=== PATIENT | female | born 1965 | race Caucasian/White ===

== ENCOUNTER 2017-10-14 22:29 | Inpatient (IN) | payer MEDICARE ==
[~2017-10-14] VITALS: Ht 172.7 cm; Wt 61.4 kg
[2017-10-14 23:48] LABS: BASOPHILS 0.1 % (0-2); EOSINOPHILS 0.1 % (0-7); HEMATOCRIT 43.2 % (36.0-48.0); HEMOGLOBIN 15.2 g/dL (12-16); IMMATURE GRANULOCYTES 0.2 % (0-5); LYMPHOCYTES 12.2 % (15-50); MCHC 35.2 g/dL (31.0-37.0); MCV 88.2 fL (80.0-100.0); MEAN PLATELET VOLUME 9.1 fL (7.4-10.4); MONOCYTES 7.6 % (2-11); NEUTROPHILS 79.8 % (40-80); PLATELET COUNT 409 10x3/uL (130-400); RDW 12.9 % (11.5-14.5); WBC 13.6 10x3/uL (4.8-10.8)
[2017-10-14 23:52] LABS: UDS - AMPHET POSITIVE QUAL (NEGATIVE); UDS - BARB NEGATIVE QUAL (NEGATIVE); UDS - BENZO NEGATIVE QUAL (NEGATIVE); UDS - COCAINE NEGATIVE QUAL (NEGATIVE); UDS - OPIATE NEGATIVE QUAL (NEGATIVE); UDS - PCP NEGATIVE QUAL (NEGATIVE); UDS - THC NEGATIVE QUAL (NEGATIVE)
[2017-10-14 23:56] LABS: AMORPHOUS SEDIMENT >1+ /lpf (NONE SEEN); APPEARANCE HAZY (CLEAR); BACTERIA FEW /hpf (NONE SEEN); BILIRUBIN NEGATIVE (NEGATIVE); COLOR YELLOW (YELLOW); EPITHELIAL CELLS NSEEN /hpf (0-5); GLUCOSE NEGATIVE (NEGATIVE); GRANULAR CAST 0-5 /lpf (NONE SEEN); HYALINE CAST 0-5 /lpf (NONE SEEN); KETONE MODERATE mg/dL (NEGATIVE); NITRITE NEGATIVE (NEGATIVE); PROTEIN 1+ mg/dL (NEGATIVE); UROBILINOGEN NORMAL (NORMAL); WHITE CELLS - URINE 0-5 /hpf (0-5)
[2017-10-15 00:13] LABS: ALBUMIN 4.3 g/dL (3.4-5.0); ALKALINE PHOSPHATASE 89 U/L (46-116); ALT (SGPT) 47 U/L (10-68); CALC OSMOLALITY 288 mosm/kg (275-300); CALCIUM 10.2 mg/dL (8.5-10.1); CARBON DIOXIDE 20.9 mmol/L (21.0-32.0); CHLORIDE - SERUM 102 mmol/L (98-107); CREATININE - SERUM 1.7 mg/dL (0.6-1.3); GLUCOSE 95 mg/dL (74-106); POTASSIUM - SERUM 3.7 mmol/L (3.5-5.1); PROTEIN - SERUM 8.1 g/dL (6.4-8.2); SODIUM 139 mmol/L (136-145); UREA NITROGEN 44 mg/dL (7-18); eGFR NON AFRICAN AMERICAN 33 mL/min (90-120)
[2017-10-15 00:32] LABS: CREATINE KINASE 1400 UL (21-215)
[2017-10-15 00:34] LABS: CKMB 33.8 U/L (0.0-3.6)
[2017-10-15] MEDS ORDERED: FLUTICASONE PRO16 GM NASAL (02:07)
[2017-10-15] MEDS ORDERED: ZYRTEC10 MG PO (02:09)
[2017-10-15] MEDS ORDERED: FUROSEMIDE20 MG PO (02:11)
[2017-10-15] MEDS ORDERED: VALIUM10 MG PO (02:12)
[2017-10-15] MEDS ORDERED: NEURONTIN 300300 MG PO (02:12)
[2017-10-15] MEDS ORDERED: ROXICODONE30 MG PO (02:13)
[2017-10-15 03:01] VITALS: BP 115/74; Ht 172.7 cm; Wt 61.4 kg
[2017-10-15 04:00] VITALS: BP 115/74
[2017-10-15 06:09] LABS: BASOPHILS 0.1 % (0-2); EOSINOPHILS 1.5 % (0-7); HEMATOCRIT 38.4 % (36.0-48.0); HEMOGLOBIN 12.8 g/dL (12-16); IMMATURE GRANULOCYTES 0.2 % (0-5); LYMPHOCYTES 15.5 % (15-50); MCHC 33.3 g/dL (31.0-37.0); MCV 89.9 fL (80.0-100.0); MEAN PLATELET VOLUME 9.2 fL (7.4-10.4); MONOCYTES 9.4 % (2-11); NEUTROPHILS 73.3 % (40-80); PLATELET COUNT 366 10x3/uL (130-400); RBC 4.27 10x6/uL (4.00-5.40); RDW 13.1 % (11.5-14.5)
[2017-10-15 06:45] LABS: ANION GAP 15.4 mmol/L (8-16); CALCIUM 9.1 mg/dL (8.5-10.1); CARBON DIOXIDE 26.1 mmol/L (21.0-32.0); CREATININE - SERUM 1.4 mg/dL (0.6-1.3)
[2017-10-15 06:46] LABS: POTASSIUM - SERUM 4.5 mmol/L (3.5-5.1)
[2017-10-15 09:07] VITALS: BP 85/47
[2017-10-15 11:26] VITALS: BP 98/52
[2017-10-15 16:17] VITALS: BP 100/61
[2017-10-15 21:08] VITALS: BP 120/73
[2017-10-16 00:37] VITALS: BP 122/61
[2017-10-16 05:12] LABS: BASOPHILS 0 % (0-2); EOSINOPHILS 2.7 % (0-7); HEMATOCRIT 33.6 % (36.0-48.0); HEMOGLOBIN 10.8 g/dL (12-16); IMMATURE GRANULOCYTES 0.2 % (0-5); LYMPHOCYTES 38.2 % (15-50); MCH 29.8 pg (26.0-34.0); MCHC 32.1 g/dL (31.0-37.0); MEAN PLATELET VOLUME 9.1 fL (7.4-10.4); MONOCYTES 8.9 % (2-11); RBC 3.62 10x6/uL (4.00-5.40); RDW 13.2 % (11.5-14.5)
[2017-10-16 05:36] LABS: MCV 92.8 fL (80.0-100.0); PLATELET COUNT 257 10x3/uL (130-400)
[2017-10-16 05:45] LABS: ALKALINE PHOSPHATASE 65 U/L (46-116); CALCIUM 8.2 mg/dL (8.5-10.1); CARBON DIOXIDE 26.4 mmol/L (21.0-32.0); CHLORIDE - SERUM 111 mmol/L (98-107); GLUCOSE 100 mg/dL (74-106); POTASSIUM - SERUM 4.1 mmol/L (3.5-5.1); SODIUM 143 mmol/L (136-145)
[2017-10-16 05:59] LABS: ALBUMIN 2.5 g/dL (3.4-5.0); ALT (SGPT) 35 U/L (10-68); CALC OSMOLALITY 287 mosm/kg (275-300); CREATININE - SERUM 0.7 mg/dL (0.6-1.3); PROTEIN - SERUM 5.5 g/dL (6.4-8.2); UREA NITROGEN 20 mg/dL (7-18); eGFR NON AFRICAN AMERICAN > 90 mL/min (90-120)
[2017-10-16 08:54] VITALS: BP 121/86
[2017-10-16 11:50] VITALS: BP 118/78
[2017-10-16 15:57] VITALS: BP 176/98
[2017-10-16 23:18] VITALS: BP 110/74
[2017-10-17 05:17] VITALS: BP 90/46
[2017-10-17 06:33] LABS: BASOPHILS 0.2 % (0-2); EOSINOPHILS 2.7 % (0-7); HEMATOCRIT 35.6 % (36.0-48.0); HEMOGLOBIN 11.2 g/dL (12-16); IMMATURE GRANULOCYTES 0.2 % (0-5); LYMPHOCYTES 25.8 % (15-50); MCH 29.9 pg (26.0-34.0); MCHC 31.5 g/dL (31.0-37.0); MEAN PLATELET VOLUME 9.2 fL (7.4-10.4); MONOCYTES 6.5 % (2-11); NEUTROPHILS 64.6 % (40-80); PLATELET COUNT 260 10x3/uL (130-400); RBC 3.74 10x6/uL (4.00-5.40); RDW 13.3 % (11.5-14.5)
[2017-10-17 06:41] LABS: MCV 95.2 fL (80.0-100.0); WBC 5.5 10x3/uL (4.8-10.8)
[2017-10-17 06:46] LABS: ALBUMIN 2.6 g/dL (3.4-5.0); ALKALINE PHOSPHATASE 69 U/L (46-116); ALT (SGPT) 35 U/L (10-68); CALC OSMOLALITY 277 mosm/kg (275-300); CALCIUM 8.7 mg/dL (8.5-10.1); CARBON DIOXIDE 24.4 mmol/L (21.0-32.0); CHLORIDE - SERUM 108 mmol/L (98-107); CREATININE - SERUM 0.7 mg/dL (0.6-1.3); GLUCOSE 105 mg/dL (74-106); POTASSIUM - SERUM 3.9 mmol/L (3.5-5.1); PROTEIN - SERUM 5.4 g/dL (6.4-8.2); SODIUM 140 mmol/L (136-145); eGFR NON AFRICAN AMERICAN > 90 mL/min (90-120)
[2017-10-17 06:47] LABS: UREA NITROGEN 11 mg/dL (7-18)
[2017-10-17 08:14] VITALS: BP 104/72
[2017-10-17 12:13] VITALS: BP 122/79
[2017-10-17 16:03] VITALS: BP 143/82
[2017-10-18 04:59] LABS: BASOPHILS 0.4 % (0-2); EOSINOPHILS 3.6 % (0-7); HEMATOCRIT 35.9 % (36.0-48.0); HEMOGLOBIN 11.6 g/dL (12-16); IMMATURE GRANULOCYTES 0.6 % (0-5); LYMPHOCYTES 30.3 % (15-50); MCH 30.1 pg (26.0-34.0); MCHC 32.3 g/dL (31.0-37.0); MEAN PLATELET VOLUME 9.2 fL (7.4-10.4); MONOCYTES 8.2 % (2-11); NEUTROPHILS 56.9 % (40-80); PLATELET COUNT 264 10x3/uL (130-400); RBC 3.86 10x6/uL (4.00-5.40); RDW 13.1 % (11.5-14.5)
[2017-10-18 05:22] LABS: ALBUMIN 2.6 g/dL (3.4-5.0); ALKALINE PHOSPHATASE 75 U/L (46-116); ALT (SGPT) 38 U/L (10-68); CALC OSMOLALITY 282 mosm/kg (275-300); CALCIUM 9.1 mg/dL (8.5-10.1); CARBON DIOXIDE 24.9 mmol/L (21.0-32.0); CHLORIDE - SERUM 107 mmol/L (98-107); CREATININE - SERUM 0.7 mg/dL (0.6-1.3); GLUCOSE 115 mg/dL (74-106); POTASSIUM - SERUM 3.7 mmol/L (3.5-5.1); SODIUM 142 mmol/L (136-145); UREA NITROGEN 11 mg/dL (7-18); eGFR NON AFRICAN AMERICAN > 90 mL/min (90-120)
[2017-10-18 05:26] VITALS: BP 126/83
[2017-10-18 09:01] VITALS: BP 146/97
[2017-10-18 13:06] VITALS: BP 132/87
[2017-10-18 15:22] VITALS: BP 107/69
[2017-10-18 21:56] VITALS: BP 132/91
[2017-10-19 03:10] LABS: HEPATITIS C ANTIBODY <0.1 (0.0-0.9)
[2017-10-19 05:18] VITALS: BP 148/84
[2017-10-19 05:18] LABS: BASOPHILS 0.1 % (0-2); EOSINOPHILS 1.2 % (0-7); HEMATOCRIT 36.1 % (36.0-48.0); HEMOGLOBIN 11.6 g/dL (12-16); IMMATURE GRANULOCYTES 0.5 % (0-5); LYMPHOCYTES 12.1 % (15-50); MCH 29.9 pg (26.0-34.0); MCHC 32.1 g/dL (31.0-37.0); MEAN PLATELET VOLUME 9.5 fL (7.4-10.4); MONOCYTES 5.5 % (2-11); NEUTROPHILS 80.6 % (40-80); PLATELET COUNT 281 10x3/uL (130-400); RBC 3.88 10x6/uL (4.00-5.40); RDW 13.1 % (11.5-14.5)
[2017-10-19 05:48] LABS: ALBUMIN 2.8 g/dL (3.4-5.0); ALKALINE PHOSPHATASE 60 U/L (46-116); ALT (SGPT) 35 U/L (10-68); CALCIUM 9.3 mg/dL (8.5-10.1); CHLORIDE - SERUM 102 mmol/L (98-107); CREATININE - SERUM 0.8 mg/dL (0.6-1.3); GLUCOSE 104 mg/dL (74-106); PROTEIN - SERUM 6.5 g/dL (6.4-8.2); SODIUM 140 mmol/L (136-145); eGFR NON AFRICAN AMERICAN 79 mL/min (90-120)
[2017-10-19 05:51] LABS: CALC OSMOLALITY 279 mosm/kg (275-300); CARBON DIOXIDE 31.6 mmol/L (21.0-32.0); POTASSIUM - SERUM 4.3 mmol/L (3.5-5.1); UREA NITROGEN 14 mg/dL (7-18)
[2017-10-19 08:55] VITALS: BP 93/58
[2017-10-19 12:48] VITALS: BP 101/70
== END 2017-10-19 16:29 | disposition home or self-care (01) | DRG 683 ==
LOC: D.ER 22:29 → D.MS 10-15 00:46 → D.EDHOLD 10-15 00:46 → D.MS 10-15 01:28
PROVIDERS: Emergency Medicine; Family Medicine
DX: N17.9 Acute kidney failure, unspecified (principal); M62.82 Rhabdomyolysis; T76.21XA Adult sexual abuse, suspected, initial encounter; E86.0 Dehydration; F32.9 Major depressive disorder, single episode, unspecified; F41.1 Generalized anxiety disorder; F43.0 Acute stress reaction; S90.819A Abrasion, unspecified foot, initial encounter; S70.319A Abrasion, unspecified thigh, initial encounter; S10.91XA Abrasion of unspecified part of neck, initial encounter; F15.10 Other stimulant abuse, uncomplicated; D64.9 Anemia, unspecified; F17.200 Nicotine dependence, unspecified, uncomplicated; K21.9 Gastro-esophageal reflux disease without esophagitis

== ENCOUNTER 2017-10-21 00:14 | Emergency (ER) | payer MEDICARE ==
[~2017-10-21 00:14] MED LIST: FLUTICASONE PRO16 GM NASAL; FUROSEMIDE20 MG PO; NEURONTIN 300300 MG PO; ROXICODONE30 MG PO; VALIUM10 MG PO; ZYRTEC10 MG PO
== END 2017-10-21 02:51 | disposition home or self-care (01) ==
LOC: D.ER 00:14
DX: M54.5 Low back pain (principal)